=== PATIENT | female | born 1930 | race Caucasian/White ===

== ENCOUNTER 2018-02-03 19:11 | Inpatient (IN) | payer MEDICARE ==
[~2018-02-03] VITALS: Ht 165.1 cm; Wt 68.4 kg
[~2018-02-03 19:11] MED LIST: DIGO125T81 PO; DISO150C3 PO; LEVO100T PO
[2018-02-03] MEDS ORDERED: FENTANYL PF 100 MCG/2ML IVPush PRN (19:30)
[2018-02-03 19:41] LABS: BASOPHILS # (AUTO) 0.03 x10^3/uL (0-0.1); BASOPHILS % (AUTO) 0 % (0-1); EOSINOPHILS # (AUTO) 0.06 x10^3/uL (0-0.4); EOSINOPHILS % (AUTO) 1 % (1-7); LYMPHOCYTES # (AUTO) 1.28 x10^3/uL (1-3.4); LYMPHOCYTES % (AUTO) 18 % (22-44); MD NO; MEAN CORPUSCULAR HEMOGLOBIN 27.9 pg (27.0-34.8); MEAN CORPUSCULAR HGB CONC 33.1 g/dL (32.4-35.8); MEAN CORPUSCULAR VOLUME 84.3 fL (80-100); MEAN PLATELET VOLUME 7.4 fL (7.4-10.4); MONOCYTES # (AUTO) 0.65 x10^3/uL (0.2-0.8); MONOCYTES % (AUTO) 9 % (2-9); NEUTROPHILS # (AUTO) 5.14 x10^3/uL (1.8-6.8); NEUTROPHILS % (AUTO) 72 % (42-75); PLATELET COUNT 534 x10^3/uL (130-400); RED BLOOD COUNT 4.62 x10^6/uL (3.82-5.3)
[2018-02-03] MEDS ORDERED: FENTANYL PF 100 MCG/2ML ONE (19:44)
[2018-02-03 19:52] LABS: ALANINE AMINOTRANSFERASE 19 U/L (12-78); ALBUMIN 3.5 g/dL (3.4-5.0); ANION GAP 6 mmol/L (5-15); CALCIUM 9.2 mg/dL (8.5-10.1); CHLORIDE 104 mmol/L (98-107); CREATININE 1.26 mg/dL (0.55-1.02)
[2018-02-03 19:56] LABS: ALKALINE PHOSPHATASE 57 U/L (45-117); BILIRUBIN,TOTAL 0.5 mg/dL (0.2-1.0); TOTAL PROTEIN 6.7 g/dL (6.4-8.2); TROPONIN I < 0.015 ng/mL (0.000-0.045)
[2018-02-03 20:21] LABS: MICROSCOPIC INDICATED
[2018-02-03 20:37] LABS: D-DIMER 0.55 ug/mlFEU (0.00-0.52); INTERNATIONAL NORMALIZED RATIO 3.88 (0.93-1.1)
[2018-02-03 20:42] LABS: CULTURE INDICATED? YES
[2018-02-03 20:46] LABS: PROTHROMBIN TIME 39.3 Seconds (9.6-11.5)
[2018-02-03] MEDS ORDERED: CEFTRIAXONE PMX 1GM/50ML 50 ML ONE (20:56)
[2018-02-03] MEDS ORDERED: CEFTRIAXONE PMX 1GM/50ML 50 ML IV ONE (21:00)
[2018-02-03] MEDS ORDERED: BISACODYL 10 MG SUPP PR PRN (22:00)
[2018-02-03] MEDS ORDERED: POLYETHYLENE GLYCOL 17 GM PACKET PO PRN (22:00)
[2018-02-03] MEDS ORDERED: ONDANSETRON 2MG/ML, 2ML IVPush PRN (22:00)
[2018-02-03] MEDS: [UNRECOGNIZED DRUG - OTHER] PO SCH (22:00)
[2018-02-03 22:35] VITALS: BP 149/63
[2018-02-03] MEDS: SODIUM CHLORIDE 0.9% 1,000 ML IV SCH ×2 (23:33→23:50)
[2018-02-04 01:21] VITALS: BP 135/63
[2018-02-04 01:44] LABS: BASOPHILS # (AUTO) 0.03 x10^3/uL (0-0.1); BASOPHILS % (AUTO) 0 % (0-1); EOSINOPHILS # (AUTO) 0.06 x10^3/uL (0-0.4); EOSINOPHILS % (AUTO) 1 % (1-7); LYMPHOCYTES # (AUTO) 1.42 x10^3/uL (1-3.4); LYMPHOCYTES % (AUTO) 19 % (22-44); MD NO; MEAN CORPUSCULAR HEMOGLOBIN 27.6 pg (27.0-34.8); MEAN CORPUSCULAR HGB CONC 32.6 g/dL (32.4-35.8); MEAN CORPUSCULAR VOLUME 84.5 fL (80-100); MEAN PLATELET VOLUME 7.2 fL (7.4-10.4); MONOCYTES # (AUTO) 0.67 x10^3/uL (0.2-0.8); MONOCYTES % (AUTO) 9 % (2-9); NEUTROPHILS # (AUTO) 5.26 x10^3/uL (1.8-6.8); NEUTROPHILS % (AUTO) 71 % (42-75); PLATELET COUNT 499 x10^3/uL (130-400); RED BLOOD COUNT 4.55 x10^6/uL (3.82-5.3); RED CELL DISTRIBUTION WIDTH 19.4 % (9.6-15.2)
[2018-02-04 01:56] LABS: ALBUMIN 3.4 g/dL (3.4-5.0); ANION GAP 6 mmol/L (5-15); CALCIUM 8.9 mg/dL (8.5-10.1); CHLORIDE 104 mmol/L (98-107)
[2018-02-04 02:00] LABS: ALANINE AMINOTRANSFERASE 16 U/L (12-78); ALKALINE PHOSPHATASE 53 U/L (45-117); BILIRUBIN,TOTAL 0.7 mg/dL (0.2-1.0); CREATININE 1.24 mg/dL (0.55-1.02); TOTAL PROTEIN 6.4 g/dL (6.4-8.2)
[2018-02-04 02:01] LABS: TROPONIN I < 0.015 ng/mL (0.000-0.045)
[2018-02-04] MEDS: ACETAMINOPHEN 325 MG TABLET PO PRN (02:03)
[2018-02-04] MEDS: LEVOTHYROXINE 100 MCG TABLET PO SCH (06:12)
[2018-02-04 07:39] VITALS: BP 127/72
[2018-02-04 07:50] LABS: TROPONIN I < 0.015 ng/mL (0.000-0.045)
[2018-02-04] MEDS: [UNRECOGNIZED DRUG - OTHER] PO SCH (09:00)
[2018-02-04] MEDS: DIGOXIN 0.125 MG TABLET PO SCH (09:37)
[2018-02-04] MEDS: SENNA/DOCUSATE TABLET PO SCH (09:37)
[2018-02-04 12:04] VITALS: BP 110/58
[2018-02-04] MEDS: SODIUM CHLORIDE 0.9% 1,000 ML IV SCH (14:06)
[2018-02-04 15:54] LABS: THYROID STIMULATING HORMONE 6.55 mIU/L (0.358-3.740)
[2018-02-04] MEDS ORDERED: DISO100C3 PO (15:59)
[2018-02-04] MEDS ORDERED: WARFARIN SODIUM 7 MG PO SCH (18:00)
[2018-02-04] MEDS ORDERED: WARFARIN SODIUM 5 MG PO SCH (18:00)
[2018-02-04 19:27] VITALS: BP 122/52
[2018-02-04] MEDS ORDERED: CEFTRIAXONE PMX 1GM/50ML 50 ML IV SCH (21:00)
[2018-02-04] MEDS ORDERED: ERGOCALCIFEROL 50,000 UNIT CAPSULE PO SCH (21:30)
[2018-02-04] MEDS: DISOPYRAMIDE 100 MG PO SCH (21:52)
[2018-02-04 22:33] LABS: INTERNATIONAL NORMALIZED RATIO 2.48 (0.93-1.1); PROTHROMBIN TIME 25.3 Seconds (9.6-11.5)
[2018-02-04] MEDS ORDERED: WARFARIN 5 MG TABLET PO-COUM ONE (23:30)
[2018-02-05 01:04] VITALS: BP 125/62
[2018-02-05] MEDS: LEVOTHYROXINE 100 MCG TABLET PO SCH (05:35)
[2018-02-05 05:46] LABS: CHLORIDE 108 mmol/L (98-107)
[2018-02-05 05:50] LABS: ANION GAP 6 mmol/L (5-15); CALCIUM 8.1 mg/dL (8.5-10.1); CREATININE 1.03 mg/dL (0.55-1.02)
[2018-02-05 05:51] LABS: INTERNATIONAL NORMALIZED RATIO 2.29 (0.93-1.1); PROTHROMBIN TIME 23.4 Seconds (9.6-11.5)
[2018-02-05 08:31] VITALS: BP 129/62
[2018-02-05] MEDS: SENNA/DOCUSATE TABLET PO SCH (09:03)
[2018-02-05] MEDS: DISOPYRAMIDE 100 MG PO SCH ×2 (09:03→20:11)
[2018-02-05] MEDS: DIGOXIN 0.125 MG TABLET PO SCH (09:03)
[2018-02-05] MEDS: ACETAMINOPHEN 325 MG TABLET PO PRN (09:03)
[2018-02-05] MEDS: SODIUM CHLORIDE 0.9% 1,000 ML IV SCH (13:40)
[2018-02-05 13:59] VITALS: BP 120/62
[2018-02-05] MEDS ORDERED: WARFARIN 3 MG TABLET PO-COUM ONE (18:00)
[2018-02-05 19:42] VITALS: BP 112/59
[2018-02-05] MEDS ORDERED: CEFTRIAXONE 1,000 MG in SODIUM CHLORIDE 0.9% 50 ML IV SCH (21:00)
[2018-02-06 00:14] VITALS: BP 134/79
[2018-02-06] MEDS: SODIUM CHLORIDE 0.9% 1,000 ML IV SCH (03:17)
[2018-02-06] MEDS ORDERED: LEVOTHYROXINE 125 MCG TABLET PO SCH (06:00)
[2018-02-06 07:57] VITALS: BP 115/57
[2018-02-06] MEDS: SENNA/DOCUSATE TABLET PO SCH (08:27)
[2018-02-06] MEDS: DISOPYRAMIDE 100 MG PO SCH (08:27)
[2018-02-06] MEDS: DIGOXIN 0.125 MG TABLET PO SCH (08:28)
[2018-02-06] MEDS ORDERED: Warfarin Maintenance Protocol XX (10:51)
[2018-02-06] MEDS ORDERED: SENN1TAB7 PO (10:51)
[2018-02-06] MEDS ORDERED: BISA10SU65 PR (10:51)
[2018-02-06] MEDS ORDERED: POLY17PO5 PO (10:51)
[2018-02-06] MEDS ORDERED: DISO100C4 PO ×2 (10:51)
[2018-02-06] MEDS ORDERED: ceftriaxone IV (10:51)
[2018-02-06] MEDS ORDERED: ACET325T14 PO (10:51)
[2018-02-06] MEDS ORDERED: ERGO500017 PO (10:51)
[2018-02-06] MEDS ORDERED: LEVO125T PO (10:51)
[2018-02-06] MEDS ORDERED: TRAM50TA2 PO (10:51)
[2018-02-06] MEDS ORDERED: DIGO125T PO (10:51)
[2018-02-06] MEDS ORDERED: WARF5TAB PO (12:44)
[2018-02-06] MEDS ORDERED: WARF5VIA PO (12:45)
[2018-02-06] MEDS ORDERED: [UNRECOGNIZED DRUG - REMARK] XX ONE (14:00)
[2018-02-06 14:10] VITALS: BP 115/58
[2018-02-06] MEDS ORDERED: WARFARIN 3 MG TABLET PO-COUM ONE (18:00)
== END 2018-02-06 16:00 | DRG 205 ==
LOC: ED 21:17 → 5SO 21:40 → ED 22:28
PROVIDERS: ADMIT Hospitalist; ATTEND Hospitalist
PROC: 0T9B70Z Drainage of Bladder with Drainage Device, Via Natural or Artificial Opening (ICD-10-PCS; principal; 2018-02-03)
DX: M94.0 Chondrocostal junction syndrome [Tietze] (principal); N17.0 Acute kidney failure with tubular necrosis; D68.69 Other thrombophilia; N30.00 Acute cystitis without hematuria; E03.9 Hypothyroidism, unspecified; E55.9 Vitamin D deficiency, unspecified; I48.2 Chronic atrial fibrillation; T45.515A Adverse effect of anticoagulants, initial encounter; B95.5 Unspecified streptococcus as the cause of diseases classified elsewhere; Z66 Do not resuscitate; Z79.01 Long term (current) use of anticoagulants; Z85.3 Personal history of malignant neoplasm of breast; Z90.13 Acquired absence of bilateral breasts and nipples; Z90.710 Acquired absence of both cervix and uterus
CPT/HCPCS: 36415; 51700; 71045; 80048; 80053; 80162; 81001; 82306; 82607; 83735; 83880; 84443; 84484; 85025; 85379; 85610; 85730; 87077; 87086; 87186; 93005; 96365; 96375; J0696; J3010; J7030

== ENCOUNTER 2018-06-04 11:52 | Inpatient (IN) | payer MEDICARE ==
[~2018-06-04] VITALS: Ht 167.6 cm; Wt 55.8 kg
[~2018-06-04 11:52] MED LIST changes: +ACET325T14 PO; +BISA10SU65 PR; +DIGO125T PO; +DISO100C3 PO; +DISO100C4 PO; +ERGO500017 PO; +LEVO125T PO; +POLY17PO5 PO; +SENN1TAB8 PO; +TRAM50TA2 PO; +WARF5TAB PO; +WARF5VIA PO; +Warfarin Maintenance Protocol XX; +ceftriaxone IV
[2018-06-04] MEDS ORDERED: PANT40TA3 PO (12:24)
[2018-06-04] MEDS ORDERED: CARV3.122 PO (12:24)
[2018-06-04] MEDS ORDERED: RIVA10TA PO (12:24)
[2018-06-04] MEDS ORDERED: DULO30CA2 PO (12:24)
[2018-06-04] MEDS ORDERED: MORPHINE SULFATE 4 MG/ML, 1ML ONE (12:25)
[2018-06-04] MEDS ORDERED: SODIUM CHLORIDE FLUSH 10ML SYR IVF ONE (12:30)
[2018-06-04] MEDS ORDERED: MORPHINE SULFATE 4 MG/ML, 1ML IVPush PRN (12:30)
[2018-06-04 12:54] LABS: BASOPHILS # (AUTO) 0.09 x10^3/uL (0-0.1); BASOPHILS % (AUTO) 1 % (0-1); EOSINOPHILS # (AUTO) 0.01 x10^3/uL (0-0.4); EOSINOPHILS % (AUTO) 0 % (1-7); LYMPHOCYTES # (AUTO) 1.12 x10^3/uL (1-3.4); LYMPHOCYTES % (AUTO) 12 % (22-44); MD NO; MEAN CORPUSCULAR HEMOGLOBIN 27.8 pg (27.0-34.8); MEAN CORPUSCULAR HGB CONC 32.7 g/dL (32.4-35.8); MEAN PLATELET VOLUME 7.3 fL (7.4-10.4); MONOCYTES # (AUTO) 0.78 x10^3/uL (0.2-0.8); MONOCYTES % (AUTO) 9 % (2-9); NEUTROPHILS # (AUTO) 7.17 x10^3/uL (1.8-6.8); NEUTROPHILS % (AUTO) 78 % (42-75); PLATELET COUNT 558 x10^3/uL (130-400); RED BLOOD COUNT 4.03 x10^6/uL (3.82-5.3); RED CELL DISTRIBUTION WIDTH 19.7 % (9.6-15.2)
[2018-06-04 12:56] LABS: INTERNATIONAL NORMALIZED RATIO 1.22 (0.93-1.1); PROTHROMBIN TIME 12.6 Seconds (9.6-11.5)
[2018-06-04 13:00] LABS: ALANINE AMINOTRANSFERASE 13 U/L (12-78); ALBUMIN 3.2 g/dL (3.4-5.0); ANION GAP 10 mmol/L (5-15); CALCIUM 8.6 mg/dL (8.5-10.1); CHLORIDE 102 mmol/L (98-107)
[2018-06-04] MEDS ORDERED: OMNIPAQUE 350 MG/ML, 100ML BOTTLE ONE (13:00)
[2018-06-04 13:02] LABS: ALKALINE PHOSPHATASE 55 U/L (45-117); BILIRUBIN,TOTAL 0.8 mg/dL (0.2-1.0); TOTAL PROTEIN 6.3 g/dL (6.4-8.2)
[2018-06-04 13:06] LABS: TROPONIN I 0.044 ng/mL (0.000-0.045)
[2018-06-04] MEDS ORDERED: NS + 20MEQ KCL 1,000 ML IV SCH (16:04)
[2018-06-04] MEDS ORDERED: morphine SULFATE 10 MG/ML, 1ML IVPush PRN (16:30)
[2018-06-04] MEDS ORDERED: METHOCARBAMOL 500 MG TABLET PO PRN (16:30)
[2018-06-04] MEDS ORDERED: POLYETHYLENE GLYCOL 17 GM PACKET PO PRN (16:30)
[2018-06-04] MEDS ORDERED: HYDROcodone/APAP 5/325 TABLET PO PRN (16:30)
[2018-06-04] MEDS ORDERED: ONDANSETRON 2MG/ML, 2ML IVPush PRN (16:30)
[2018-06-04] MEDS ORDERED: DOCUSATE 100 MG CAPSULE PO PRN (16:30)
[2018-06-04 17:10] VITALS: BP 155/56
[2018-06-04] MEDS: RIVAROXABAN 10 MG TABLET PO SCH (17:44)
[2018-06-04 19:12] VITALS: BP 141/50
[2018-06-04] MEDS: FAMOTIDINE 20 MG TABLET PO SCH (20:38)
[2018-06-04 20:39] VITALS: BP 115/42
[2018-06-04] MEDS: CARVEDILOL 3.125 MG TABLET PO SCH (20:40)
[2018-06-04 21:15] LABS: CULTURE INDICATED? NO; MICROSCOPIC NOT IND
[2018-06-05 02:57] VITALS: BP 129/52
[2018-06-05] MEDS: LEVOTHYROXINE 100 MCG TABLET PO SCH (06:33)
[2018-06-05 08:21] VITALS: BP 125/57
[2018-06-05] MEDS ORDERED: SENNA/DOCUSATE TABLET PO SCH (09:00)
[2018-06-05] MEDS: CARVEDILOL 3.125 MG TABLET PO SCH ×2 (09:00→21:00)
[2018-06-05] MEDS: RIVAROXABAN 10 MG TABLET PO SCH (09:42)
[2018-06-05] MEDS: DULOXETINE 30 MG CAPSULE.DR PO SCH (09:42)
[2018-06-05] MEDS: FAMOTIDINE 20 MG TABLET PO SCH ×2 (09:42→20:38)
[2018-06-05] MEDS: SENNA/DOCUSATE TABLET PO SCH (09:43)
[2018-06-05] MEDS: DIGOXIN 0.125 MG TABLET PO SCH (09:44)
[2018-06-05 12:06] VITALS: BP 143/61
[2018-06-05 19:35] VITALS: BP 130/54
[2018-06-05] MEDS: ACETAMINOPHEN 325 MG TABLET PO PRN (20:42)
[2018-06-06 01:08] VITALS: BP 129/66
[2018-06-06] MEDS: LEVOTHYROXINE 100 MCG TABLET PO SCH (06:20)
[2018-06-06 06:33] VITALS: BP 149/71
[2018-06-06] MEDS: RIVAROXABAN 10 MG TABLET PO SCH (07:50)
[2018-06-06] MEDS: FAMOTIDINE 20 MG TABLET PO SCH ×2 (07:50→19:37)
[2018-06-06] MEDS: DULOXETINE 30 MG CAPSULE.DR PO SCH (07:51)
[2018-06-06] MEDS: SENNA/DOCUSATE TABLET PO SCH (07:51)
[2018-06-06] MEDS: CARVEDILOL 3.125 MG TABLET PO SCH ×2 (07:51→19:37)
[2018-06-06] MEDS: DIGOXIN 0.125 MG TABLET PO SCH (07:51)
[2018-06-06] MEDS ORDERED: BISACODYL 10 MG SUPP PR PRN (11:00)
[2018-06-06] MEDS: POLYETHYLENE GLYCOL 17 GM PACKET PO SCH (11:49)
[2018-06-06 12:37] VITALS: BP 134/62
[2018-06-06] MEDS ORDERED: OXYC-305 PO (13:13)
[2018-06-06] MEDS ORDERED: TRAM50TA2 PO (13:13)
[2018-06-06] MEDS ORDERED: POLY17PO5 PO (13:13)
[2018-06-06 18:28] VITALS: BP 151/63
[2018-06-06] MEDS: ACETAMINOPHEN 325 MG TABLET PO PRN (19:37)
[2018-06-07 01:09] VITALS: BP 122/56
[2018-06-07] MEDS: LEVOTHYROXINE 100 MCG TABLET PO SCH (06:12)
[2018-06-07 06:31] VITALS: BP 146/65
[2018-06-07] MEDS: POLYETHYLENE GLYCOL 17 GM PACKET PO SCH (09:40)
[2018-06-07] MEDS: DIGOXIN 0.125 MG TABLET PO SCH (09:41)
[2018-06-07] MEDS: DULOXETINE 30 MG CAPSULE.DR PO SCH (09:41)
[2018-06-07] MEDS: CARVEDILOL 3.125 MG TABLET PO SCH ×2 (09:41→20:34)
[2018-06-07] MEDS: RIVAROXABAN 10 MG TABLET PO SCH (09:41)
[2018-06-07] MEDS: SENNA/DOCUSATE TABLET PO SCH (09:41)
[2018-06-07] MEDS: FAMOTIDINE 20 MG TABLET PO SCH ×2 (09:41→20:34)
[2018-06-07 14:10] VITALS: BP 150/67
[2018-06-07 20:32] VITALS: BP 124/60
[2018-06-08 01:29] VITALS: BP 136/62
[2018-06-08] MEDS: LEVOTHYROXINE 100 MCG TABLET PO SCH (05:44)
[2018-06-08 07:59] VITALS: BP 94/53
[2018-06-08 08:30] VITALS: BP 126/54
[2018-06-08] MEDS: DULOXETINE 30 MG CAPSULE.DR PO SCH (08:47)
[2018-06-08] MEDS: DIGOXIN 0.125 MG TABLET PO SCH (08:47)
[2018-06-08] MEDS: SENNA/DOCUSATE TABLET PO SCH (08:47)
[2018-06-08] MEDS: RIVAROXABAN 10 MG TABLET PO SCH (08:47)
[2018-06-08] MEDS: FAMOTIDINE 20 MG TABLET PO SCH (08:47)
[2018-06-08] MEDS: CARVEDILOL 3.125 MG TABLET PO SCH (08:47)
[2018-06-08] MEDS: POLYETHYLENE GLYCOL 17 GM PACKET PO SCH (08:52)
[2018-06-08 14:42] VITALS: BP 124/68
== END 2018-06-08 17:51 | DRG 552 ==
LOC: ED 12:40 → EDIP 15:19 → 3NE 16:39
PROVIDERS: ADMIT Family Medicine; ATTEND Family Medicine
DX: S22.089A Unspecified fracture of T11-T12 vertebra, initial encounter for closed fracture (principal); D68.69 Other thrombophilia; F03.90 Unspecified dementia, unspecified severity, without behavioral disturbance, psychotic disturbance, mood disturbance, and anxiety; I48.91 Unspecified atrial fibrillation; W01.0XXA Fall on same level from slipping, tripping and stumbling without subsequent striking against object, initial encounter; E03.9 Hypothyroidism, unspecified; Y09 Assault by unspecified means; K59.00 Constipation, unspecified; N20.0 Calculus of kidney; Z66 Do not resuscitate; Z90.12 Acquired absence of left breast and nipple; Y99.0 Civilian activity done for income or pay; Z83.3 Family history of diabetes mellitus; Z79.01 Long term (current) use of anticoagulants; Z85.3 Personal history of malignant neoplasm of breast; Z87.442 Personal history of urinary calculi; Y92.099 Unspecified place in other non-institutional residence as the place of occurrence of the external cause; Z79.899 Other long term (current) drug therapy
CPT/HCPCS: 36415; 72131; 74177; 80053; 80162; 81003; 83690; 84484; 85025; 85610; 85730; 93005; 96374; G0378; J3480; Q9967